=== PATIENT | male | born 2000 | race Caucasian/White ===

== ENCOUNTER 2018-07-10 12:02 | Emergency (ER) | payer OTHER ==
[~2018-07-10] VITALS: Ht 175.3 cm; Wt 68.2 kg
[2018-07-10 12:05] VITALS: BP 123/60; TEMP 98.6
[2018-07-10] MEDS ORDERED: FLEXERIL 1010 MG/TAB PO (13:14)
[2018-07-10 13:49] VITALS: PULSE 68
== END 2018-07-10 13:21 | disposition home or self-care (01) ==
LOC: COL.ER 12:02
DX: M54.9 Dorsalgia, unspecified (principal); M62.830 Muscle spasm of back